=== PATIENT | male | born 1950 | race Caucasian/White ===

== ENCOUNTER 2020-01-02 10:36 | Outpatient (CLI) | payer MEDICARE, BC, SELFPAY ==
--- NOTE | 2020-01-02 10:48 | XRR_ITS ---
PROCEDURE INFORMATION: Exam: XR Lumbosacral Spine, 2 or 3 Views Exam date and time: 01/02/2020 10:58 AM Age: 69 years old Clinical indication: Low back pain; Additional info: Lumbar radiculopathy TECHNIQUE: Imaging protocol: XR of the lumbosacral spine, 2 or 3 views. COMPARISON: No relevant prior studies available. FINDINGS: Vertebrae: No acute fracture. Normal alignment. Minimal degenerative facet change Soft tissues: Calcification overlying the right lower pole. XR/XR lumbar spine 2-3V* [id number] IMPRESSION: No acute findings. Probable right renal calculus.
== END 2020-01-02 10:37 | disposition home or self-care (01) ==
LOC: RAD 10:42
PROVIDERS: PCP Family Medicine; Visit Provider Family Medicine
DX: M54.16 Radiculopathy, lumbar region (principal)
CPT/HCPCS: 72100

== ENCOUNTER 2020-01-15 08:22 | Outpatient (CLI) | payer MEDICARE, BC, SELFPAY ==
--- NOTE | 2020-01-15 08:30 | CT_ITS ---
WS: [id number] CT ABDOMEN AND PELVIS WITH CONTRAST HISTORY: ABDOMINAL PAIN TECHNIQUE: Imaging performed of the abdomen and pelvis with IV contrast. Single phase imaging of the abdomen. Coronal and sagittal reformats are submitted. All CT scans at [facility] use at least one of these dose optimization techniques: automated exposure control; mA and/or kV adjustment per patient size (includes targeted exams where dose is matched to clinical indication); or iterativ e reconstruction. IV CONTRAST: Omnipaque 300; 95 mL IV. Oral contrast: Yes. DLP: 1232.45 mGycm COMPARISON: None available. Lower thorax: Lung bases are clear. Heart is normal size. Large hiatal hernia. Liver/biliary system: Normal size with no intrahepatic dilatation. Gallbladder: Normal. No gallstones or wall thickening. No pericholecystic fluid. Pancreas: Normal. Spleen: Normal. Adrenal glands: Normal. Right kidney: Normal size kidney. Exophytic 9 mm hyperdense nodule upper pole is indeterminate for cy st. No obstruction. Additional cortical cyst in the lower pole. Nonobstructing calcification lower po le RIGHT kidney measures 8 mm. Left kidney: Normal size kidney. No mass. No hydronephrosis. Aorta: Mild atherosclerosis with no aneurysm. Duplicated IVC. Lymphadenopathy: None. Free fluid: None. GI tract: Normal appendix. No GI tract obstruction. Numerous diverticula throughout a large portion o f the colon. Increasing pericolonic stranding in the descending and sigmoid colon. No adjacent fluid. Abdominal wall: Unremarkable abdominal wall. No hernia. Pelvis: Mildly enlarged prostate gland indenting into the posterior bladder. There is dense central c alcifications. Distal ureters are closely associated with the prostate gland enlargement. Bones: Unremarkable. CT/CT abdomen pelvis w con* [id number] IMPRESSION: 1. Moderate diverticulosis throughout a majority of the colon. Very minimal pe ricolonic stranding in the descending colon may be a mild case of diverticuliti s. 2. Prostate gland enlargement. 3. Normal appendix. 4. Indeterminate exophytic 9 mm hyperdense mass from the RIGHT kidney. Complex cyst versus early renal cell neoplasm. Recommend further evaluation by ultraso und. 5. Large hiatal hernia. 6. Duplicated IVC.
[2020-01-15] MEDS: iohexol 300 mg/mL 50 mL Btl PO (09:14)
[2020-01-15 10:02] LABS: Blood Urea Nitrogen 13 mg/dL (8-23); Glomerular Filtration Rate 74.3 mL/min (90-130)
[2020-01-15] MEDS: iohexol 300 mg/mL 100 mL Btl IV (10:09)
== END 2020-01-15 08:23 | disposition home or self-care (01) ==
LOC: RADWPI 08:28
PROVIDERS: PCP Family Medicine; Visit Provider Family Medicine
DX: R10.9 Unspecified abdominal pain (principal); K57.90 Diverticulosis of intestine, part unspecified, without perforation or abscess without bleeding; N40.0 Benign prostatic hyperplasia without lower urinary tract symptoms; N28.89 Other specified disorders of kidney and ureter; K44.9 Diaphragmatic hernia without obstruction or gangrene
CPT/HCPCS: 74177; 82565; 84520; Q9967

== ENCOUNTER 2020-01-23 09:50 | Outpatient (CLI) | payer MEDICARE, BC, SELFPAY ==
--- NOTE | 2020-01-23 10:07 | US_ITS ---
WS: [id number] RENAL ULTRASOUND HISTORY: RIGHT RENAL MASS ON CT COMPARISON: 01/15/2020 CT. TECHNIQUE: 2-D and color Doppler imaging of the kidney submitted. Right kidney: 9.6 cm x 6.8 cm x 6.5 cm. Normal size kidney. No renal atrophy. Exophytic low-attenuation mass from the superior pole measures 1.4 x 1.5 x 1.3 cm. No increased vascularity. Left kidney: 11.8 cm x 5.8 cm x 6.8 cm. Normal echogenicity with no hydronephrosis or mass. Aorta: Normal. Urinary Bladder: Normally distended bladder. Prostate gland is markedly enlarged measuring 5.7 x 3.8 x 5.7 cm. US/US renal BI* [id number] IMPRESSION: 1. Exophytic mass from the superior pole RIGHT kidney corresponds to the mass seen on the recent CT. Favor this is a minimally complex cyst. Consider six-mon th ultrasound follow-up to document stability of size. 2. No hydronephrosis. 3. Prostate gland enlargement.
== END 2020-01-23 09:51 | disposition home or self-care (01) ==
LOC: RAD 10:05
PROVIDERS: PCP Family Medicine; Visit Provider Family Medicine
DX: N28.89 Other specified disorders of kidney and ureter (principal); N40.0 Benign prostatic hyperplasia without lower urinary tract symptoms
CPT/HCPCS: 76770

== ENCOUNTER 2020-10-03 12:51 | Outpatient (CLI) | payer MEDICARE, BC, SELFPAY ==
--- NOTE | 2020-10-03 13:00 | US_ITS ---
WS: [id number] RENAL ULTRASOUND HISTORY: RENAL MASS COMPARISON: 01/23/2020 TECHNIQUE: 2-D and color Doppler imaging of the kidney submitted. Right kidney: 10.7 cm x 6.2 cm x 7.1 cm. Normal size kidney. The exophytic hyperdense mass seen on the recent CT corresponds to a hypoechoic n odule measuring 1.5 x 1.5 x 1.2 cm. No increased vascularity. This hypoechoic nodule was also present on the prior study of 01/23/2020 and not increased in size. Favor this is a benign cyst. No hydronep hrosis. Left kidney: 12.2 cm x 5.4 cm x 6.0 cm. No hydronephrosis or mass. 5 mm calcification nonobstructing in the upper pole. Aorta: Normal. Urinary Bladder: Normally distended bladder. Prostate gland is very mildly prominent. US/US renal BI* [id number] IMPRESSION: 1. Stable exophytic mass from the upper pole of the RIGHT kidney is probably a small complex cyst. No change since 01/23/2020. 2. Nonobstructing calcification measuring 5 mm upper pole LEFT kidney.
== END 2020-10-03 12:52 | disposition home or self-care (01) ==
LOC: RAD 12:53
PROVIDERS: PCP Family Medicine; Visit Provider Family Medicine
DX: N28.89 Other specified disorders of kidney and ureter (principal); N20.0 Calculus of kidney
CPT/HCPCS: 76770

== ENCOUNTER 2021-04-22 10:32 | Outpatient (CLI) | payer MEDICARE, BC, SELFPAY ==
--- NOTE | 2021-04-22 10:44 | XR_ITS ---
WS: [id number] XR shoulder LT min 2V* [id number] REASON FOR EXAM: L SHOULDER PAIN FINDINGS: No fracture or focal bone lesion. There is some sclerosis and cystic change Acromioclavicular joint spaces relatively well-preserved. Small marginal osteophytes. There is some sclerosis and cystic change in the humeral biceps tuberosity at the rotator cuff insert ion. Glenohumeral joint is intact and well preserved. No soft tissue abnormality. XR/XR shoulder LT min 2V* [id number] IMPRESSION: Mild cuff arthropathy which could be associated with rotator cuff tendinosis.
--- NOTE | 2021-04-22 10:44 | XR_ITS ---
WS: [id number] XR shoulder RT min 2V* [id number] REASON FOR EXAM: R SHOULDER PAIN FINDINGS: No fracture or focal bone lesion. Mild narrowing of the acromioclavicular joint with small marginal osteophytes. Glenohumeral joint space is intact and well preserved. No significant bone abnormality in the humeral head or glenoid. No soft tissue abnormality. 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
== END 2021-04-22 10:33 | disposition home or self-care (01) ==
LOC: RAD 10:39
PROVIDERS: PCP Family Medicine; Visit Provider Family Medicine
DX: M25.512 Pain in left shoulder (principal); M19.011 Primary osteoarthritis, right shoulder
CPT/HCPCS: 73030

== ENCOUNTER 2021-04-30 06:00 | Outpatient (RCR) | payer MEDICARE, BC, SELFPAY | END 2021-05-11 23:59 | disposition home or self-care (01) | LOC: SPT 06:00 | PROVIDERS: PCP Family Medicine; Referring Provider Family Medicine; Visit Provider Family Medicine | DX: M25.512 Pain in left shoulder (principal); M25.511 Pain in right shoulder | CPT/HCPCS: 97110; 97161 ==

== ENCOUNTER 2021-05-12 06:00 | Outpatient (RCR) | payer MEDICARE, BC, SELFPAY | END 2021-06-08 23:59 | disposition home or self-care (01) | LOC: SPT 06:00 | PROVIDERS: PCP Family Medicine; Referring Provider Family Medicine; Visit Provider Family Medicine | DX: M25.512 Pain in left shoulder (principal); M25.511 Pain in right shoulder | CPT/HCPCS: 97110 ==

== ENCOUNTER 2021-06-09 06:00 | Outpatient (RCR) | payer MEDICARE, BC, SELFPAY | END 2021-07-09 23:59 | disposition home or self-care (01) | LOC: SPT 06:00 | PROVIDERS: PCP Family Medicine; Referring Provider Family Medicine; Visit Provider Family Medicine | DX: M25.512 Pain in left shoulder (principal); M25.511 Pain in right shoulder | CPT/HCPCS: 97110; 97530 ==

== ENCOUNTER 2021-07-10 06:00 | Outpatient (RCR) | payer MEDICARE, BC, SELFPAY | END 2021-08-08 23:59 | disposition home or self-care (01) | LOC: SPT 06:00 | PROVIDERS: PCP Family Medicine; Referring Provider Family Medicine; Visit Provider Family Medicine | DX: M25.512 Pain in left shoulder (principal); M25.511 Pain in right shoulder | CPT/HCPCS: 97110 ==

== ENCOUNTER 2021-08-09 | Outpatient (RCR) | payer MEDICARE, BC, SELFPAY | END 2021-08-18 23:59 | disposition home or self-care (01) | LOC: SPT | PROVIDERS: PCP Family Medicine; Referring Provider Family Medicine; Visit Provider Family Medicine | DX: M25.512 Pain in left shoulder (principal) | CPT/HCPCS: 97110 ==

== ENCOUNTER 2021-10-19 07:43 | Outpatient (CLI) | payer MEDICARE, BC, SELFPAY ==
--- NOTE | 2021-10-19 07:57 | MR_ITS ---
WS: [id number] MRI RIGHT SHOULDER NONCONTRAST TECHNIQUE: Sagittal T2, coronal T1, T2 and proton density imaging. Axial gradient PDE imaging. CLINICAL INFORMATION: R SHOULDER PAIN COMPARISON: None. FINDINGS: Mild degenerative arthritis AC joint with edema. Mild subacromial spurring. Tendinopathy distal supra spinatus with a tiny insertional tear. Mild chronic thinning of the distal supraspinatus. Normal infr aspinatus. Normal teres minor. Intrasubstance split tear of the subscapularis with medial subluxation of the biceps tendon in the bicipital groove. Partial dislocation of the biceps tendon from the prox imal bicipital groove. Biceps labral anchor appears intact. Degenerative fraying glenoid labrum. Cyst ic degenerative change involving the greater tuberosity and glenoid. MR/MR shoulder RT wo con* [id number] IMPRESSION: 1. Moderate degenerative arthritis AC joint with mild edema and fluid. 2. Tendinopathy with a tiny insertional tear distal supraspinatus. 3. Intrasubstance split tear of the subscapularis with medial subluxation and partial dislocation of the biceps tendon from the proximal bicipital groove. Bi ceps labral anchor appears intact. 4. Degenerative fraying of the glenoid labrum.
== END 2021-10-19 07:44 | disposition home or self-care (01) ==
LOC: RAD 07:47
PROVIDERS: PCP Family Medicine; Visit Provider Family Medicine
DX: M19.011 Primary osteoarthritis, right shoulder (principal); S46.011A Strain of muscle(s) and tendon(s) of the rotator cuff of right shoulder, initial encounter; X58.XXXA Exposure to other specified factors, initial encounter
CPT/HCPCS: 73221

== ENCOUNTER → 2021-11-13 09:02 | Outpatient (BNVA) | payer MEDICARE, BC, SELFPAY | PROVIDERS: PCP Family Medicine; Visit Provider Internal Medicine Cardiovascular Disease | DX: Z01.810 Encounter for preprocedural cardiovascular examination (principal); I25.10 Atherosclerotic heart disease of native coronary artery without angina pectoris; M75.100 Unspecified rotator cuff tear or rupture of unspecified shoulder, not specified as traumatic | CPT/HCPCS: 99214 ==

== ENCOUNTER 2021-11-24 10:08 | Outpatient (CLI) | payer MEDICARE, BC, SELFPAY ==
--- NOTE | 2021-11-24 11:01 | ECG_ITS ---
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 Measurements Intervals [place] Rate: 77 P: 9 IN: 163 QRS: -29 QRSD: 88 T: -5 QT: 375 QTc: 426 Interpretive Statements SINUS RHYTHM BORDERLINE LEFT AXIS DEVIATION [QRS AXIS < -20] Compared to ECG 11/19/2018 05:13:09 No significant changes Electronically Signed On 11-24-2021 18:19:27 CDT by Stacy Arthur M.D. [email or web address]
== END 2021-11-24 10:09 | disposition home or self-care (01) ==
LOC: RT 10:10
PROVIDERS: PCP Family Medicine; Visit Provider Orthopaedic Surgery
DX: Z01.818 Encounter for other preprocedural examination (principal)
CPT/HCPCS: 80048; 93005

== ENCOUNTER 2022-01-20 08:29 | Outpatient (RCR) | payer MEDICARE, BC, SELFPAY | END 2022-02-08 23:59 | disposition home or self-care (01) | LOC: SPT 08:29 | PROVIDERS: PCP Family Medicine; Visit Provider Orthopaedic Surgery | DX: S46.091D Other injury of muscle(s) and tendon(s) of the rotator cuff of right shoulder, subsequent encounter (principal); X58.XXXD Exposure to other specified factors, subsequent encounter | CPT/HCPCS: 97110; 97140; 97161 ==

== ENCOUNTER 2022-02-09 06:00 | Outpatient (RCR) | payer MEDICARE, BC, SELFPAY | END 2022-03-10 23:59 | disposition home or self-care (01) | LOC: SPT 06:00 | PROVIDERS: PCP Family Medicine; Visit Provider Orthopaedic Surgery | DX: S46.091D Other injury of muscle(s) and tendon(s) of the rotator cuff of right shoulder, subsequent encounter (principal); X58.XXXD Exposure to other specified factors, subsequent encounter | CPT/HCPCS: 97110 ==

== ENCOUNTER 2022-03-11 06:00 | Outpatient (RCR) | payer MEDICARE, BC, SELFPAY | END 2022-04-10 23:59 | disposition home or self-care (01) | LOC: SPT 06:00 | PROVIDERS: PCP Family Medicine; Visit Provider Orthopaedic Surgery | DX: S46.091D Other injury of muscle(s) and tendon(s) of the rotator cuff of right shoulder, subsequent encounter (principal); X58.XXXD Exposure to other specified factors, subsequent encounter | CPT/HCPCS: 97110; 97530 ==

== ENCOUNTER 2022-04-11 06:00 | Outpatient (RCR) | payer MEDICARE, SELFPAY | END 2022-04-22 15:22 | disposition home or self-care (01) | LOC: SPT 06:00 | PROVIDERS: PCP Family Medicine; Visit Provider Orthopaedic Surgery | DX: S46.091D Other injury of muscle(s) and tendon(s) of the rotator cuff of right shoulder, subsequent encounter (principal); X58.XXXD Exposure to other specified factors, subsequent encounter | CPT/HCPCS: 97110 ==

== ENCOUNTER → 2022-06-21 09:32 | Outpatient (BNVA) | payer MEDICARE, SELFPAY | PROVIDERS: PCP Family Medicine; Visit Provider Family Medicine | DX: R31.9 Hematuria, unspecified (principal); E78.5 Hyperlipidemia, unspecified; Z13.220 Encounter for screening for lipoid disorders; E11.9 Type 2 diabetes mellitus without complications; Z51.81 Encounter for therapeutic drug level monitoring | CPT/HCPCS: 80053; 80061; 81000; 83036; 85025; 87086 ==

== ENCOUNTER → 2022-11-12 08:54 | Outpatient (BNVA) | payer MEDICARE, SELFPAY | PROVIDERS: PCP Family Medicine; Visit Provider Internal Medicine Cardiovascular Disease | DX: I25.10 Atherosclerotic heart disease of native coronary artery without angina pectoris (principal); E78.5 Hyperlipidemia, unspecified; K21.9 Gastro-esophageal reflux disease without esophagitis | CPT/HCPCS: 99214 ==

== ENCOUNTER → 2023-05-23 13:52 | Outpatient (BNVA) | payer MEDICARE, SELFPAY | PROVIDERS: PCP Family Medicine; Visit Provider Clinical Nurse Specialist Adult Health | DX: J20.8 Acute bronchitis due to other specified organisms (principal); B96.89 Other specified bacterial agents as the cause of diseases classified elsewhere | CPT/HCPCS: 87400; 87426 ==

== ENCOUNTER → 2023-09-06 09:18 | Outpatient (BNVA) | payer MEDICARE, SELFPAY | PROVIDERS: PCP Family Medicine; Visit Provider Family Medicine | DX: Z51.81 Encounter for therapeutic drug level monitoring (principal); E03.9 Hypothyroidism, unspecified; R31.9 Hematuria, unspecified; Z13.220 Encounter for screening for lipoid disorders; I25.10 Atherosclerotic heart disease of native coronary artery without angina pectoris | CPT/HCPCS: 80053; 80061; 84153; 84443; 85025 ==

== ENCOUNTER 2023-09-20 09:36 | Outpatient (CLI) | payer MEDICARE, SELFPAY ==
[2023-09-20 09:49] VITALS: BMI 31.0
--- NOTE | 2023-09-20 09:52 | ECG_ITS ---
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 Interpretive Statements NAME OF STUDY: LEXISCAN SESTAMIBI STRESS TEST INDICATION: [Chest Pain, ] Procedure: At the baseline, the blood pressure was 133/93 mmHg with a heart rate of 64 bpm. The electrocardiogram showed normal sinus rhythm, normal axis with normal ST and T's. The Lexiscan was infused over a period of 20 seconds. A total of 0.4 mg of Lexiscan was infused. The stress phase was continued for a total of 5 minutes. Heart rate was at the end of stress phase was 77 bpm and a blood pressure of 127/73 mmHg. The EKG at the peak infusion revealed normal sinus rhythm with no significant ST-T wave changes. Sestamibi was injected 20 seconds after the Lexiscan infusion. Blood pressure at the end of recovery phase was 139/82 mmHg with a heart rate of 73 bpm. Conclusion: 1. Normal EKG response to Lexiscan infusion 2. No Lexiscan induced chest pain or cardiac arrhythmia. 3. Normal blood pressure and heart rate response. 4. Sestamibi/sestamibi perfusion scan pending; see separate report. Electronically Signed On 09-26-2023 9:11:35 CDT by Nathanael Stoner M.D. [email or web address]
--- NOTE | 2023-09-20 09:52 | NMCV_ITS ---
NM aubrey perf SPECT r/s* [id number] Juan Do Age: 72 Gender: M : 1950 Exam Date: 09/20/2023 10:27 Ordering Phys: Nirav Can MD Technologist: HUSAM Valentin Exam Location: [facility] Indications: CP STRESS TEST Please [facility] IMAGE PROTOCOL Rest/Stress 1 Lexiscan Day Radiopharmaceutical Dose (mCi) Administration Site Administered by Rest: Tc-99m 10.8 IV HUSAM Valentin Sestamibi Stress:Tc-99m 32.4 IV HUSAM Valentin Sestamibi Rest: 20-Sep-2023 60 Discovery 630 Stress: 20-Sep-2023 30 Discovery 630 0.4mg Lexiscan. Images obtained in supine and prone position. SPECT RESULTS Technical Quality: Excellent Raw Data Analysis: Normal Image Corrections: No attenuation or motion correction applied Summed Stress Score: 0 Summed Rest Score: 0 Summed Difference Score: 0 PERFUSION FINDINGS SPECT images demonstrate homogeneous tracer distribution throughout the myocardium. FUNCTIONAL RESULTS (calculated via Gated SPECT) Stress Image LV EF (%): 78 Stress EDV (mL):76 TID: 1.24 Stress ESV (mL):17 FUNCTIONAL FINDINGS: There is normal left ventricular systolic function. TID ratio is elevated and is 1.24. IMPRESSIONS 1. Normal myocardial perfusion imaging with no evidence of ischemia. 2. LV systolic function is normal 3. TID ratio is elevated and is 1.24. Nathanael Stoner MD (Electronically Signed) Final Date: 20 September 2023 16:53 S
[2023-09-20] MEDS: regadenoson 0.4 Mg/5 ml Syringe 0.400000000000000022 MG IVP (11:03)
[2023-09-20 11:28] VITALS: BP 139/82; PULSE 73
== END 2023-09-20 09:37 | disposition home or self-care (01) ==
PROVIDERS: PCP Family Medicine; Visit Provider Family Medicine
DX: R07.9 Chest pain, unspecified (principal); R94.39 Abnormal result of other cardiovascular function study
CPT/HCPCS: 36415; 78452; 93017; 96374; A9500; J2785

== ENCOUNTER 2023-10-31 20:00 | Outpatient (CLI) | payer MEDICARE, SELFPAY | END 2023-10-31 20:01 | disposition home or self-care (01) | LOC: SLEEP 23:17 | PROVIDERS: PCP Family Medicine; Visit Provider Family Medicine | DX: G47.10 Hypersomnia, unspecified (principal) | CPT/HCPCS: 80053; 80061; 84153; 84443; 85025; 95810 ==

== ENCOUNTER → 2023-11-04 07:38 | Outpatient (BNVA) | payer MEDICARE, SELFPAY | PROVIDERS: PCP Family Medicine; Visit Provider Family Medicine | DX: N20.0 Calculus of kidney (principal); R30.0 Dysuria; R10.9 Unspecified abdominal pain | CPT/HCPCS: 81000; 87086 ==

== ENCOUNTER 2023-11-09 08:46 | Outpatient (CLI) | payer MEDICARE, SELFPAY ==
--- NOTE | 2023-11-09 09:00 | CTR_ITS ---
PROCEDURE INFORMATION: Exam: CT Abdomen And Pelvis Without Contrast Exam date and time: 11/09/2023 8:58 AM Age: 72 years old Clinical indication: Pain; Other: Left flank; Additional info: Concern for left kidney stone - stone protocol TECHNIQUE: Imaging protocol: Computed tomography of the abdomen and pelvis without contrast. Radiation optimization: All CT scans at this facility use at least one of these dose optimization techniques: automated exposure control; mA and/or kV adjustment per patient size (includes targeted exams where dose is matched to clinical indication); or iterative reconstruction. COMPARISON: CT abdomen pelvis w con* [id number] 01/15/2020 10:07 AM RADIATION DOSE METRICS: Total DLP (mGy-cm): 602.59 FINDINGS: Lungs: Lung bases are clear as visualized. Diaphragm: There is a large hiatal hernia. Liver: Normal. No mass. Gallbladder and biliary ducts: Normal. No calcified stones. No ductal dilation. Pancreas: Normal. No ductal dilation. Spleen: Normal. No splenomegaly. Adrenal glands: Normal. No mass. Kidneys and ureters: Nonobstructing renal calculus is noted on the right. Stable hyperdense lesion noted involving the lateral mid pole cortex of the right kidney measuring 13 mm in size. The left kidney has a normal noncontrast appearance. No hydronephrosis is appreciated. No ureteral stones are identified. Stomach and bowel: There are scattered colonic diverticula. No large bowel wall thickening is appreciated. No dilated loops of large or small bowel is appreciated. Appendix: No evidence of appendicitis. Intraperitoneal space: Unremarkable. No free air. No significant fluid collection. Vasculature: Unremarkable. No abdominal aortic aneurysm. Lymph nodes: Unremarkable. No enlarged lymph nodes. Urinary bladder: Unremarkable as visualized. Reproductive: Unremarkable as visualized. Bones/joints: Unremarkable. No acute fracture. Soft tissues: Unremarkable. CT/CT kidney stone [id number] IMPRESSION: 1. Nephrolithiasis on the right. 2. Stable hyperdense lesion right kidney. 3. Diverticulosis. 4. Large hiatal hernia.
== END 2023-11-09 08:47 | disposition home or self-care (01) ==
LOC: RAD 08:47
PROVIDERS: PCP Family Medicine; Visit Provider Family Medicine
DX: N20.0 Calculus of kidney (principal); K57.90 Diverticulosis of intestine, part unspecified, without perforation or abscess without bleeding; K44.9 Diaphragmatic hernia without obstruction or gangrene
CPT/HCPCS: 74176

== ENCOUNTER 2023-12-19 07:55 | Outpatient (CLI) | payer MEDICARE, SELFPAY ==
--- NOTE | 2023-12-19 08:00 | USCV_ITS ---
Juan Do Age: 73 Gender: M : 1950 Exam Date: 12/19/2023 08:19 Ordering Phys: Nirav Can MD Technologist: CT Exam Location: [facility]_ Indication: Aortic Velocity @ SMA (cm/s) 70.2 RIGHT KIDNEY LEFT KIDNEY Velocity (cm/s) Velocity (cm/s) Sys/Quiroz Sys/Quiroz Resistive Index Resistive Index 45.1 / 19.2 Proximal Renal Artery 41.5 / 16.2 41.3 / 15.6 Mid Renal Artery 37.0 / 18.0 49.1 / 19.4 Distal Renal Artery 38.8 / 17.1 37.7 / 11.7 Hilar 58.7 / 27.9 30.8 / 9.5 Upper Pole 28.9 / 13.5 19.9 / 9.0 Mid Pole 31.6 / 12.6 20.7 / 8.2 Lower Pole 23.5 / 10.8 10.6 Kidney Length (cm) 11.7 FINDINGS no stenosis, normal us CONCLUSIONS 1.0 x 0.8 cm calculus right kidney. No obstruction Otherwise naina ultrasound Clarke Paul MD (Electronically Signed) Final Date: 20 December 2023 16:01 S
== END 2023-12-19 07:56 | disposition home or self-care (01) ==
LOC: RAD 07:56
PROVIDERS: PCP Family Medicine; Visit Provider Family Medicine
DX: N20.0 Calculus of kidney (principal); R31.9 Hematuria, unspecified; R10.9 Unspecified abdominal pain
CPT/HCPCS: 93975

== ENCOUNTER 2024-02-20 20:00 | Outpatient (CLI) | payer MEDICARE, SELFPAY | END 2024-02-20 20:01 | disposition home or self-care (01) | LOC: SLEEP 02-21 01:02 | PROVIDERS: PCP Family Medicine; Visit Provider Family Medicine | DX: G47.33 Obstructive sleep apnea (adult) (pediatric) (principal); Z99.89 Dependence on other enabling machines and devices | CPT/HCPCS: 81000; 87086; 95811 ==

== ENCOUNTER → 2024-06-06 09:22 | Outpatient (BNVA) | payer MEDICARE, SELFPAY | PROVIDERS: PCP Family Medicine; Visit Provider Nurse Practitioner Family | DX: D22.39 Melanocytic nevi of other parts of face (principal); D36.12 Benign neoplasm of peripheral nerves and autonomic nervous system, upper limb, including shoulder; L81.4 Other melanin hyperpigmentation; L82.1 Other seborrheic keratosis; Z08 Encounter for follow-up examination after completed treatment for malignant neoplasm; Z85.828 Personal history of other malignant neoplasm of skin; D48.5 Neoplasm of uncertain behavior of skin; L57.0 Actinic keratosis | CPT/HCPCS: 11102; 17000; 99203 ==

== ENCOUNTER → 2024-07-09 07:47 | Outpatient (BNVA) | payer MEDICARE, SELFPAY | PROVIDERS: PCP Family Medicine; Visit Provider Dermatology | DX: C44.319 Basal cell carcinoma of skin of other parts of face (principal) | CPT/HCPCS: 13132; 17311 ==

== ENCOUNTER → 2024-07-16 13:00 | Outpatient (BNVA) | payer MEDICARE, SELFPAY | PROVIDERS: PCP Family Medicine; Visit Provider Dermatology | DX: C44.519 Basal cell carcinoma of skin of other part of trunk (principal); L57.0 Actinic keratosis | CPT/HCPCS: 11603; 12032; 17000; 17261 ==

== ENCOUNTER → 2024-09-17 11:48 | Outpatient (BNVA) | payer MEDICARE, SELFPAY | PROVIDERS: PCP Family Medicine; Visit Provider Family Medicine | DX: Z00.00 Encounter for general adult medical examination without abnormal findings (principal); R31.9 Hematuria, unspecified; Z13.6 Encounter for screening for cardiovascular disorders | CPT/HCPCS: 80053; 80061; 84153; 85025 ==

== ENCOUNTER 2024-09-28 09:15 | Outpatient (RCR) | payer MEDICARE, SELFPAY | END 2024-10-08 23:55 | disposition home or self-care (01) | LOC: SPT 09:15 | PROVIDERS: PCP Family Medicine; Visit Provider Family Medicine | DX: M54.16 Radiculopathy, lumbar region (principal) | CPT/HCPCS: 97161 ==

== ENCOUNTER → 2024-10-05 09:45 | Outpatient (BNVA) | payer MEDICARE, SELFPAY | PROVIDERS: PCP Family Medicine; Visit Provider Nurse Practitioner Family | DX: L72.0 Epidermal cyst (principal); L82.1 Other seborrheic keratosis; Z08 Encounter for follow-up examination after completed treatment for malignant neoplasm; Z85.828 Personal history of other malignant neoplasm of skin; L82.0 Inflamed seborrheic keratosis; L29.89 Other pruritus; R20.9 Unspecified disturbances of skin sensation; R20.8 Other disturbances of skin sensation; L53.8 Other specified erythematous conditions; L57.0 Actinic keratosis | CPT/HCPCS: 17000; 17110; 99213 ==

== ENCOUNTER 2024-10-09 06:30 | Outpatient (RCR) | payer MEDICARE, SELFPAY | END 2024-11-08 23:59 | disposition home or self-care (01) | LOC: SPT 06:30 | PROVIDERS: PCP Family Medicine; Visit Provider Family Medicine | DX: M54.16 Radiculopathy, lumbar region (principal) | CPT/HCPCS: 97110 ==

== ENCOUNTER → 2024-12-18 08:36 | Outpatient (BNVA) | payer MEDICARE, SELFPAY | PROVIDERS: PCP Family Medicine; Visit Provider Nurse Practitioner Family | DX: L82.1 Other seborrheic keratosis (principal); L73.8 Other specified follicular disorders; Z08 Encounter for follow-up examination after completed treatment for malignant neoplasm; Z85.828 Personal history of other malignant neoplasm of skin; L82.0 Inflamed seborrheic keratosis | CPT/HCPCS: 17000; 17110; 99213 ==

== ENCOUNTER → 2025-03-15 11:00 | Outpatient (BNVA) | payer MEDICARE, SELFPAY | PROVIDERS: PCP Family Medicine; Visit Provider Nurse Practitioner Family | DX: L82.0 Inflamed seborrheic keratosis (principal); D22.39 Melanocytic nevi of other parts of face; L73.8 Other specified follicular disorders; L82.1 Other seborrheic keratosis; L81.4 Other melanin hyperpigmentation; Z08 Encounter for follow-up examination after completed treatment for malignant neoplasm; Z85.828 Personal history of other malignant neoplasm of skin | CPT/HCPCS: 99213 ==